=== PATIENT | female | born 1970 ===

== ENCOUNTER 2018-01-21 19:29 | Emergency (ER) | payer SELFPAY ==
[2018-01-21 19:29] VITALS: BMI 33.2
[2018-01-21 20:00] VITALS: BP 146/89; PULSE 87; RESP 18; TEMP 98.3; O2SAT 100
[2018-01-21] MEDS ORDERED: Lidocaine 5% Patch TD STA (20:10)
[2018-01-21 20:48] LABS: SQUAMOUS EPITHIAL 1 /hpf (0-5); URINE BILIRUBIN NEGATIVE (NEGATIVE); URINE BLOOD NEGATIVE (NEGATIVE); URINE CLARITY SLIGHTY-CLOUDY (Clear); URINE COLOR COLORLESS (YELLOW); URINE GLUCOSE (UA) NEG (Normal); URINE LEUKOCYTE ESTERASE NEG Leu/uL (Negative); URINE PROTEIN NEGATIVE (NEGATIVE); URINE UROBILINOGEN 0.2-1.0 mg/dL (0.2-1.0)
--- NOTE | 2018-01-21 21:01 | ED PDOC ---
HPI: Back Time Seen by Provider: 01/21/18 20:02 Chief Complaint (Nursing): Back Pain Chief Complaint (Provider): Back Pain History Per: Patient History/Exam Limitations: no limitations Onset/Duration Of Symptoms: Days (x4 days ago ) Current Symptoms Are (Timing): Still Present Additional Complaint(s): Dmitry Castanon is a 47 year old female with no past medical history, who presents to the emergency department complaining of atraumatic lower back pain with no radiation, onset x4 days ago. Patient states she has taken no medications to relieve symptoms and states that the symptoms worsen with movement. She denies sustaining any trauma, numbness, tingling, dysuria, hematuria, incontinence or abdominal pain. PMD: No provider Past Medical History Reviewed: Historical Data, Nursing Documentation, Vital Signs Vital Signs: Last Vital Signs Temp 98.3 F 01/21/18 19:57 Pulse 87 01/21/18 19:57 Resp 18 01/21/18 19:57 BP 146/89 01/21/18 19:57 Pulse Ox 100 01/21/18 19:57 - Medical History PMH: No Chronic Diseases Denies: Chronic Kidney Disease - Surgical History Surgical History: No Surg Hx - Family History Family History: States: Unknown Family Hx - Home Medications Home Medications: Ambulatory Orders Medication Instructions Recorded Ca/Cholecalciferol/Fe/Folic 1 1 tab PO DAILY 01/05/15 [Basic's Vitamins] Ferrous Sulfate [Slow Fe] 160 mg PO BID 01/05/15 Cyclobenzaprine [Cyclobenzaprine 10 mg PO Q8 PRN #10 tab 01/21/18 HCl] Naproxen [Naprosyn] 500 mg PO BID PRN #10 tab 01/21/18 - Allergies Allergies/Adverse Reactions: Allergies Allergy/AdvReac Type Severity Reaction Status Date / Time No Known Allergies Allergy Verified 01/21/18 19:56 Review of Systems ROS Statement: Except As Marked, All Systems Reviewed And Found Negative Gastrointestinal: Negative for: Abdominal Pain Genitourinary Female: Negative for: Dysuria, Incontinence, Hematuria Musculoskeletal: Positive for: Back Pain (atraumatic lower back pain) Neurological: Negative for: Numbness, Other (tingling) Physical Exam - Reviewed Nursing Documentation Reviewed: Yes Vital Signs Reviewed: Yes - Physical Exam Appears: Positive for: In Acute Distress (mild and painful distress ) Head Exam: Positive for: ATRAUMATIC, NORMOCEPHALIC Skin: Positive for: Normal Color, Warm Eye Exam: Positive for: Normal appearance, EOMI, PERRL Neck: Positive for: Normal, Painless ROM, Supple Cardiovascular/Chest: Positive for: Regular Rate, Rhythm Respiratory: Positive for: Normal Breath Sounds. Negative for: Respiratory Distress Gastrointestinal/Abdominal: Positive for: Normal Exam, Bowel Sounds, Soft. Negative for: Tenderness Back: Positive for: Other (left sided para lumbar tenderness ). Negative for: L CVA Tenderness, R CVA Tenderness Extremity: Positive for: Normal ROM. Negative for: Tenderness, Deformity, Swelling Neurologic/Psych: Positive for: Alert, Oriented (x3) - ECG O2 Sat by Pulse Oximetry: 100 (RA) Pulse Ox Interpretation: Normal - Radiology X-Ray: Interpreted by Me (LS spine x-ray) X-Ray Interpretation: No Acute Disease - Progress Re-evaluation Time: 21:49 Condition: Re-examined, Improved Medical Decision Making Medical Decision Making: Initial Time: 20:10 Initial Plan: --Ed urine (POC) --Flexeril 10 mg PO --5% Lidoderm 1 ea TD --Toradol 30 mg IM --X-ray LS spine AP/LAT --Urinalysis Scribe Attestation: Documented by Henry Howell, acting as a scribe for Max Alexander Provider Scribe Attestation: All medical record entries made by the Scribe were at my direction and personally dictated by me. I have reviewed the chart and agree that the record accurately reflects my personal performance of the history, physical exam, medical decision making, and the department course for this patient. I have also personally directed, reviewed, and agree with the discharge instructions and disposition. Disposition - Clinical Impression Clinical Impression: Low back pain - Patient ED Disposition Is Patient to be Admitted: No - Disposition Referrals: Bob Sanchez MD [Staff Provider] - [facility] [Outside] [facility] [Outside] Disposition: Routine/Home Disposition Time: 21:50 Condition: IMPROVED Additional Instructions: DMITRY CASTANON, thank you for letting us take care of you today. Your provider was Hans Quinn MD and you were treated for BACK PAIN. The emergency medical care you received today was directed at your acute symptoms. If you were prescribed any medication, please fill it and take as directed. It may take several days for your symptoms to resolve. Return to the Emergency Department if your symptoms worsen, do not improve, or if you have any other problems. Please contact your doctor or call one of the physicians/clinics you have been referred to that are listed on the Patient Visit Information form that is included in your discharge packet. Bring any paperwork you were given at discharge with you along with any medications you are taking to your follow up visit. Our treatment cannot replace ongoing medical care by a primary care provider outside of the emergency department. Thank you for allowing the [facility] team to be part of your care today. If you had an X-Ray or CT scan: A Radiologist will review the ED reading if any change in treatment is needed we will contact you. If you had a blood, urine, or wound culture: It will take several days for the results, if any change in treatment is needed we will contact you. If you had an STI test: It will take 48 hours for the results. Please call after 1 week if you have not heard back. Prescriptions: Cyclobenzaprine [Cyclobenzaprine HCl] 10 mg PO Q8 PRN #10 tab PRN Reason: Muscle Spasm Naproxen [Naprosyn] 500 mg PO BID PRN #10 tab PRN Reason: Pain Instructions: Low Back Pain (DC) Forms: [employer] Media (Libyan) Print Language: CITIZEN OF [place]
--- NOTE | 2018-01-22 10:30 | RAD ---
Date of service: 01/21/2018 PROCEDURE: Radiographs of the Lumbar Spine. HISTORY: Back pain COMPARISON: No prior. FINDINGS: BONES: There is normal alignment of the lumbar vertebral bodies. There is normal lumbar lordosis. There is no acute fracture, spondylolysis or spondylolisthesis. Bone mineralization is normal. DISC SPACES: The disc heights are maintained. OTHER FINDINGS: None. IMPRESSION: No acute fracture, spondylolysis or spondylolisthesis.
== END 2018-01-21 22:13 | disposition home or self-care (01) ==
LOC: H.ER 19:29
DX: M54.5 Low back pain (principal)
CPT/HCPCS: 72100; 81003; 81025; 96372; 99283; J1885